=== PATIENT | female | born 1975 | race Caucasian/White ===

== ENCOUNTER 2017-01-21 12:03 | Emergency (ER) | payer OTHER ==
[~2017-01-21] VITALS: Ht 167.6 cm; Wt 47.6 kg
[~2017-01-21 12:03] MED LIST: ALBUTEROL2 PUFFS/17 IN; AZITHROMYCIN250 M1 PO; CLARITIN 10MG T10 MG PO; CLONAZEPAM 1MG T1 MG PO; KEFLEX 500MG.500 MG PO; MEDROL 4MG. DOSE4 MG PO; PREDNISONE 20MG20 MG PO; SEPTRA DS 800 M1 TAB PO; TESSALON PERLE100 MG PO; TESSALON PERLE200 MG PO; ULTRAM50 MG PO; ZITHROMAX Z PA250 MG PO
[2017-01-21] MEDS ORDERED: GABAPENTIN100 MG PO (12:21)
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
[2017-01-21] MEDS ORDERED: ROBAXIN500 M1 PO (15:09)
[2017-01-21] MEDS ORDERED: DICLOFENAC 50MG50 MG PO (15:09)
[2017-01-21 15:17] VITALS: BP 127/69
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
--- OUTSIDE RECORDS SUMMARY | 2017-01-22 05:58 | External Medical Summary Rpt ---
Demographics Preferred Language Palestinian Marital Status Unknown Uatsdin Affiliation Unknown Race Unknown Ethnic Group Unknown Author Author , Organization [employer] Address Unknown Phone Unavailable Purpose Continuity of Care Document - through 2016 Immunization No patient found.
--- OUTSIDE RECORDS SUMMARY | 2017-01-22 05:58 | External Medical Summary Rpt ---
Demographics Preferred Language Barbadian Marital Status Unknown Anabaptist Affiliation Unknown Race Unknown Ethnic Group Unknown Author Author , Organization [employer] Address Unknown Phone Unavailable Purpose Continuity of Care Document - through 2016 Immunization No patient found.
--- OUTSIDE RECORDS SUMMARY | 2017-01-22 05:58 | External Medical Summary Rpt ---
Author Author [employer] At[employer], [employer] Organization [employer] Address Unknown Phone Unavailable
== END 2017-01-21 15:18 | disposition home or self-care (01) ==
LOC: UTC 12:03 → ER 12:07
DX: S09.90XA Unspecified injury of head, initial encounter (principal); S16.1XXA Strain of muscle, fascia and tendon at neck level, initial encounter; V89.2XXA Person injured in unspecified motor-vehicle accident, traffic, initial encounter